=== PATIENT | male | born 2005 | race Caucasian/White ===

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

== ENCOUNTER 2025-04-25 12:30 | Outpatient (AMB) | payer OTHER, SELFPAY ==
[2025-04-25 13:30] VITALS: BP 116/70; PULSE 83; TEMP 37.3; O2SAT 98; BMI 29.1
--- NOTE | 2025-04-25 13:30 | MHC.OFFWIV ---
Intake Vital Signs 04/25/25 13:30 Height 5 ft 10 in Weight 203 lb BMI 29.1 BP 116/70 Blood Pressure Location Lt brachial Position Sitting Pulse 83 Pulse Source Pulse Oximeter Temp 99.2 F Temp Source Oral Pulse Oximetry (%) 98 Oxygen Delivery Method Room Air Intake Visit Reasons: EP-sore throat, body ache, headaches Intake Note: pt presents with sore throat with pain swallowing, sinus congestions, body aches, mild headache Patient Tobacco Use Status: Never used Tobacco Allergies No Known Allergies Allergy (Verified 04/25/25 13:37) Do you need a note to return to daycare/school/sports/work: Yes HPI HPI Comments History of Present Illness Details This is a 20-year-old male with a past medical history of seasonal allergies presenting for evaluation of a sore throat, sinus congestion and body aches that he has had for the past one day. Patient reports having chills but denies having any fevers, cough, shortness of breath or sick contacts. [facility] Medical History (Updated 04/25/25 @ 14:35 by Ammy Blandon PA-C) Large tonsils Fatigue Snoring Screening for cardiovascular condition Routine physical examination ADHD (attention deficit hyperactivity disorder) Surgical History (Updated 05/19/24 @ 12:27 by GRECIA Vides) History of wisdom tooth extraction Family History (Updated 05/19/24 @ 12:28 by GRECIA Vides) Mother Hypertension Social History Housing: House Patient Tobacco Use Status: Never used Tobacco e-Cigarette/Vaping Use: Never Used Second Hand Smoke Exposure: No Current occupational status: employed 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 Current occupational exposures/hazards: No Cognitive needs: No Hearing needs: No Vision needs: No Review of Systems Const All systems reviewed & are unremarkable except as noted in HPI and below Reports body aches, Reports chills, Reports fatigue and Denies fever(s) Eyes Reports no additional complaints, Denies change in vision, Denies itchy eyes and Denies photophobia ENT Reports no additional complaints, Denies otalgia, Denies facial pain, Reports nasal congestion, Denies post nasal drip, Denies sinus pressure, Reports sore throat, Denies throat swelling and Denies tongue swelling Card Reports no additional complaints and Denies dyspnea Resp Reports no additional complaints, Denies chest congestion, Denies cough, Denies dyspnea and Denies wheezing GI Reports no additional complaints Reports no additional complaints Musc Reports no additional complaints and Reports myalgias Skin/Breast Reports system reviewed and no additional complaints, except as documented Psych Reports no additional complaints Endo Reports fatigue Zach/Lymph Reports no additional complaints Aller/Immun Denies itchy eyes, Denies throat swelling, Denies tongue swelling and Denies wheezing Physical Exam Vital Signs: Last Vital Signs Temp 99.2 F 04/25/25 13:30 Pulse 83 04/25/25 13:30 BP 116/70 04/25/25 13:30 Pulse Ox 98 04/25/25 13:30 Oxygen Delivery Method Room Air 04/25/25 13:30 BMI result Body Mass Index 29.1 Const General: cooperative, healthy appearing, comfortable, no acute distress, well developed, alert, awake and Physically active; No acute distress, ill appearing or lethargic Nutritional Appearance: well nourished Orientation/consciousness: patient oriented x3 and No lethargic Limitations: no limitations HEENT Head: Yes normal to inspection and Yes normocephalic Ears: hearing grossly normal bilaterally, external ears normal, TM's normal bilaterally and EAC's normal General nose exam: Normal external nose present Face and sinus: Yes normal facial exam and Yes sinuses nontender Mouth: Normal oral and palatal mucosa present, oropharynx normal and moist mucous membranes Throat: Yes posterior oropharynx normal (There is no edema, erythema or exudates of the posterior oropharynx), Yes uvula midline, No postnasal drainage and No uvula laterally displaced Eyes General: appearance normal, both eyes and all related structures Direct Ophthalmoscopy: No photophobia Neck Lymphatic: no lymphadenopathy noted Resp Effort & Inspection: normal respiratory effort, able to speak in complete sentences, not labored, no nasal flaring and not tachypneic Auscultation: clear to auscultation bilaterally Cardio Rate: regular rate Rhythm: regular rhythm Skin General skin exam: no rashes or lesions noted Neuro General: patient oriented x3 Psych Appearance: grossly normal Mental Status: mental status grossly normal Insight: Good insight present (Psych) Judgement: Good judgement present (Psych) Results AMB Rapid Strep AMB Rapid Strep Negative Last Edit by Thony Hurley CMA on 04/25/25 13:56 Results Reviewed Results Reviewed: Laboratory Last Values Strep Scn [facility] Negative 04/25/25 13:44 Rapid strep test is negative. Assessment & Plan Assessment & Plan (1) Acute upper respiratory infection: Code(s): J06.9 - Acute upper respiratory infection, unspecified Plan: Patient's rapid strep test is negative. Expanded respiratory panel is ordered and results are pending. Patient is instructed to use ibuprofen as needed for his sore throat. Plan Ibuprofen 600 mg every 8 hours as needed for pharyngitis, increase clear fluids daily. Results of respiratory panel are pending at this time. Orders: Orders Resp Pathogen Panel - [facility] Today Ammy Blandon PA-C J06.9 - Acute upper respiratory infection, unspecified AMB Rapid Strep Screen Today Mely Dick PA-C Z13.9 - Encounter for screening, unspecified Coding Level of Care Code Est Pt Level 3 (48088) Diagnoses Acute upper respiratory infection J06.9 Time Spent (min) 20
== END 2025-04-25 14:42 | disposition home or self-care (01) ==
PROVIDERS: PCP Physician Assistant Medical; Visit Provider Physician Assistant
DX: J06.9 Acute upper respiratory infection, unspecified (principal); Z13.9 Encounter for screening, unspecified

== ENCOUNTER 2025-04-25 12:30 | Outpatient (REF) | payer OTHER, SELFPAY ==
[2025-04-26 13:51] LABS: Chlamydia pneumoniae PCR Not Detected (Not Detect.); Coronavirus 229E PCR Not Detected (Not Detect.); Coronavirus HKU1 PCR Not Detected (Not Detect.); Coronavirus NL63 PCR Not Detected (Not Detect.); Coronavirus OC43 PCR Not Detected (Not Detect.); RSV PCR Not Detected (Not Detect.); Rhino/Enterovirus PCR Not Detected (Not Detect.)
[2025-04-26 13:57] LABS: Influenza A H1 PCR Not Detected (Not Detect.); Influenza A H1-2009 PCR Not Detected (Not Detect.); Influenza A H3 PCR Not Detected (Not Detect.); SARS-CoV-2 PCR Not Detected (Not Detect.)
== END 2025-04-25 12:31 | disposition home or self-care (01) ==
LOC: HO.LNP 12:30
PROVIDERS: PCP Physician Assistant Medical; Visit Provider Physician Assistant
DX: J06.9 Acute upper respiratory infection, unspecified (principal); R51.9 Headache, unspecified; J02.9 Acute pharyngitis, unspecified
CPT/HCPCS: 87633; 87880

== ENCOUNTER 2025-07-24 13:36 | Outpatient (AMB) | payer OTHER, SELFPAY ==
--- NOTE | 2025-07-24 13:46 | A.OFFPC_ITS ---
Vital Signs 07/24/25 13:50 Height 5 ft 10 in Weight 207 lb 8 oz BMI 29.8 BP 120/82 Blood Pressure Location Rt brachial Position Sitting Respiration 13 Pulse 95 Pulse Source Pulse Oximeter Temp 97.5 F Temp Source Temporal Artery Scan Pulse Oximetry (%) 96 Oxygen Delivery Method Room Air Intake Visit Reasons: Meds review Intake Note: Maurilio presents in the office today for a medication review. Allergies No Known Allergies Allergy (Verified 07/24/25 13:49) Medication List - Last Reconciled 07/24/25 by GRECIA Vides albuterol sulfate 90 mcg/actuation 2 puffs inhalation Q6H PRN lisdexamfetamine 60 mg PO QAM Tobacco use date assessed: 07/24/25 Dental Screening Dental Screen Date: 07/24/25 Did you have a dental visit in the last 12 months?: No Did you have a dental problem in the last 6 months where you did not have access to dental care?: No Was dental information given to patient?: Patient declined HPI HPI Comments History of Present Illness Details This is a 20-year-old male with a past medical history of ADHD and asthma presenting to discuss his medication. ADHD-he restarted Vyvanse 60 mg daily because he is starting a new job. The medication is effective. One time he took it at 10:00 and had a lot of insomnia, but otherwise he denies side effects. He has been on this medication in the past when he was in [employer] school. Patient is agreeable to signing CSA today and having a urine drug screen completed. Asthma-he has not had to use albuterol within the last few months. No ER visits or hospitalizations. Denies tobacco use. Declines flu shot. ROS: Constitutional: No fevers or chills Eyes: No vision changes Respiratory: No shortness of breath, cough or sputum production. Cardiovascular: No chest pain or palpitations Neurologic: No headache, dizziness Psychiatric: No depression or anxiety. Physical exam: Constitutional: Alert, in no distress. Respiratory: Clear to auscultation. Cardiovascular: S1 S2 regular. No murmurs Psychiatric: Normal mood and affect [facility] Medical History (Updated 04/25/25 @ 14:35 by Ammy Blandon PA-C) Large tonsils Fatigue Snoring Screening for cardiovascular condition Routine physical examination ADHD (attention deficit hyperactivity disorder) Surgical History (Updated 05/19/24 @ 12:27 by GRECIA Vides) History of wisdom tooth extraction Family History (Updated 07/24/25 @ 13:49 by Paula Monique CMA) Mother Hypertension Social History Housing: House Patient Tobacco Use Status: Never used Tobacco e-Cigarette/Vaping Use: Never Used Second Hand Smoke Exposure: No Current occupational status: employed 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 Current occupational exposures/hazards: No Cognitive needs: No Hearing needs: No Vision needs: No Questionnaire Thrive Questionnaire Date Thrive assessed: 11/24/24 I am a: Patient What is your living situation today?: I have a steady place to live Within the past 12 months, did the food you bought not last and you didn't have the money to get more?: Never true Within the past 12 months, did you worry whether your food would run out before you got money to buy more?: Never true Do you have trouble paying for medicines?: No Do you have trouble getting transportation to medical appointments?: No Do you have trouble paying your heating and electricity bill?: No Do you have trouble taking care of your child, family member or friend?: No Do you have trouble with day-to-day activities such as bathing, preparing meals, shopping, managing finances, etc.?: No Are you currently unemployed and looking for a job?: No Are you interested in more education?: No Please select the resources that you would like help with: None Currently or been in a relationship where the following occur: No concerns reported THRIVE Score: 0 MICKEY-7 AMB Questionnaire MICKEY-7 Date MICKEY - 7 assessed: 11/24/24 Source: Developed by Drs. Fadi Pérez, Itzel Rivera, Jimbo Nuno and colleagues, with an educational jose from [employer]. Physical exam (Primary Care) Vital Signs: Last Vital Signs Temp 97.5 F 07/24/25 13:50 Pulse 95 07/24/25 13:50 Resp 13 07/24/25 13:50 BP 120/82 07/24/25 13:50 Pulse Ox 96 07/24/25 13:50 Oxygen Delivery Method Room Air 07/24/25 13:50 BMI result Body Mass Index 29.8 Tobacco/Smoking Status: Tobacco use Status Tobacco use date assessed 07/24/25 07/24/25 13:53 Patient Tobacco Use Status Never used Tobacco 07/24/25 13:48 e-Cigarette/Vaping Use Never Used 07/24/25 13:48 Thrive Assessment: Date of Thrive Assessment Date Thrive assessed 11/24/24 07/24/25 13:48 Currently or been in a relationship where the following occur: No concerns reported Coding Level of Care Code Est Pt Level 3 (33810) Complex visit Add On G2211 Diagnoses Other specified attention deficit hyperactivity disorder (ADHD) F90.8 Attention deficit-hyperactivity disorder type: other specified Mild intermittent asthma J45.20 Assessment & Plan Assessment & Plan (1) ADHD (attention deficit hyperactivity disorder): Code(s): F90.9 - Attention-deficit hyperactivity disorder, unspecified type Category: Medical Qualifiers: Attention deficit-hyperactivity disorder type: other specified Qualified Code(s): F90.8 - Attention-deficit hyperactivity disorder, other type Plan: Continue Vyvanse 60 mg every morning. Side effects reviewed. Reviewed controlled substance agreement with the patient. This is signed, and he will have the urine drug screen completed today. (2) Mild intermittent asthma: Code(s): J45.20 - Mild intermittent asthma, uncomplicated Plan: Continue albuterol as needed. Plan Physical exam is scheduled in November. Orders: Orders Drug Screen Urine Today Z51.81 - Encounter for therapeutic drug level monitoring
[2025-07-24 13:50] VITALS: BP 120/82; PULSE 95; RESP 13; TEMP 36.4; O2SAT 96; BMI 29.8
== END 2025-07-24 14:10 | disposition home or self-care (01) ==
LOC: HO.HMCFM 13:37
PROVIDERS: PCP Physician Assistant Medical; Visit Provider Physician Assistant Medical
DX: F90.8 Attention-deficit hyperactivity disorder, other type (principal); J45.20 Mild intermittent asthma, uncomplicated

== ENCOUNTER 2025-07-24 13:36 | Outpatient (REF) | payer OTHER, SELFPAY ==
[2025-07-24 18:58] LABS: Cannabinoid Screen Urine Not Detected (Not Detect)
== END 2025-07-24 13:37 | disposition home or self-care (01) ==
LOC: HO.WFDLDS 13:36
PROVIDERS: PCP Physician Assistant Medical; Visit Provider Physician Assistant Medical
DX: J45.20 Mild intermittent asthma, uncomplicated (principal); F90.8 Attention-deficit hyperactivity disorder, other type; F90.9 Attention-deficit hyperactivity disorder, unspecified type; J45.909 Unspecified asthma, uncomplicated; Z51.81 Encounter for therapeutic drug level monitoring; Z79.899 Other long term (current) drug therapy
CPT/HCPCS: 80307